=== PATIENT | male | born 1985 ===

== ENCOUNTER 2016-09-08 21:52 | Emergency (ER) | payer MEDICAID ==
[2016-09-08 22:11] VITALS: BP 138/67; PULSE 68; TEMP 98.9; O2SAT 97
--- NOTE | 2016-09-08 22:29 | C.PDOC ---
History Of Present Illness 30 y/o male presents to ED with complaint of dental pain that has persisted for the last month, worsening over the last few days. Patient also states he feels like there is pus draining from his lower back teeth. Patient states he was seen by dentist 1 month ago, who called in penicillin prescription for him, but was unable to fill due to insurance issues. Patient notes he has not followed up with dentist or had further evaluation since initial visit. Denies headache, fever, chills, sore throat, nausea, vomiting, or other associated symptoms. Time Seen by Provider: 09/08/16 22:07 Chief Complaint (Nursing): Dental Pain History Per: Patient History/Exam Limitations: no limitations Onset/Duration Of Symptoms: Days Current Symptoms Are (Timing): Worse Recent travel outside of the [place]: No Past Medical History Reviewed: Historical Data, Nursing Documentation, Vital Signs Vital Signs: Last Vital Signs Temp 98.9 F 09/08/16 22:11 Pulse 68 09/08/16 22:11 Resp 20 09/08/16 23:00 BP 138/67 09/08/16 22:11 Pulse Ox 97 09/08/16 22:55 - Medical History PMH: Asthma, Hepatitis (C) - [facility] Procedures OTHER SKIN & SUBQ I D (01/09/14) Family History: States: Unknown Family Hx - Social History Hx Tobacco Use: Yes Hx Alcohol Use: Yes Hx Substance Use: Yes - Immunization History Hx Tetanus Toxoid Vaccination: No Hx Influenza Vaccination: No Hx Pneumococcal Vaccination: No Review Of Systems Except As Marked, All Systems Reviewed And Found Negative. Constitutional: Negative for: Fever, Chills ENT: Positive for: Other (dental pain ). Negative for: Throat Pain Respiratory: Negative for: Cough Skin: Negative for: Rash Physical Exam - Physical Exam Appears: Non-toxic, No Acute Distress Skin: Normal Color, Warm, Dry Head: Atraumatic, Normacephalic Oral Mucosa: Moist Teeth: Caries (intensive caries, R > L), Edentulous (greater on right side), Tender To Palpation (posterior left lower gum) Gingiva: Erythema (greater on right lower gum ), No Bleeding, No Abscess, Other (no drainage noted) Throat: Normal, No Erythema, No Exudate Chest: Symmetrical Cardiovascular: Rhythm Regular Respiratory: Normal Breath Sounds, No Rales, No Rhonchi, No Wheezing Extremity: Normal ROM Neurological/Psych: Oriented x3, Normal Speech, Normal Cognition ED Course And Treatment O2 Sat by Pulse Oximetry: 97 (RA) Pulse Ox Interpretation: Normal Progress Note: Treated with Motrin and Penicillin VK PO. 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 - Scribe Statement The provider has reviewed the documentation as recorded by the Hanna Ruiz All medical record entries made by the Hanna were at my direction and personally dictated by me. I have reviewed the chart and agree that the record accurately reflects my personal performance of the history, physical exam, medical decision making, and the department course for this patient. I have also personally directed, reviewed, and agree with the discharge instructions and disposition.
[2016-09-08 23:01] VITALS: RESP 20
== END 2016-09-08 23:00 | disposition home or self-care (01) ==
LOC: C.ER 21:52
DX: K02.9 Dental caries, unspecified (principal); K05.10 Chronic gingivitis, plaque induced

== ENCOUNTER 2017-07-28 13:09 | Inpatient (IN) | payer MEDICAID ==
--- NOTE | 2017-07-28 16:30 | C.PDOC ---
History Of Present Illness 31 yr old male presents to the ER for opioid detox. Patient is a pre-screen. Denies SI, HI, chest pain, SOB, nausea, vomiting, weakness or numbness. Time Seen by Provider: 07/28/17 15:59 Chief Complaint (Nursing): Substance Abuse History Per: Patient History/Exam Limitations: no limitations Suicide/Self Injury Attempted (Context): None Severity: None Past Medical History Reviewed: Historical Data, Nursing Documentation, Vital Signs Vital Signs: Last Vital Signs Temp 97.7 F 07/28/17 15:49 Pulse 66 07/28/17 15:49 Resp 16 07/28/17 15:49 BP 137/83 07/28/17 15:49 Pulse Ox 99 07/28/17 17:15 - Medical History PMH: Asthma, Hepatitis (C) - [facility] Procedures OTHER SKIN & SUBQ I D (01/09/14) Family History: States: No Known Family Hx - Social History Hx Tobacco Use: Yes Hx Alcohol Use: No Hx Substance Use: Yes - Immunization History Hx Tetanus Toxoid Vaccination: No Hx Influenza Vaccination: Yes Hx Pneumococcal Vaccination: No Review Of Systems Except As Marked, All Systems Reviewed And Found Negative. Cardiovascular: Negative for: Chest Pain Respiratory: Negative for: Shortness of Breath Gastrointestinal: Negative for: Nausea, Vomiting Neurological: Negative for: Weakness, Numbness Physical Exam - Physical Exam Appears: Non-toxic, No Acute Distress Skin: Warm, Dry, No Rash Head: Atraumatic, Normacephalic Eye(s): bilateral: Normal Inspection, PERRL, EOMI Oral Mucosa: Moist Neck: Normal ROM Cardiovascular: Rhythm Regular, No Friction Rub, No Murmur Respiratory: Normal Breath Sounds, No Rales, No Rhonchi, No Stridor, No Wheezing Gastrointestinal/Abdominal: Normal Exam, Soft, No Tenderness, No Guarding, No Rebound Back: Normal Inspection, No CVA Tenderness Extremity: Normal ROM, No Swelling Neurological/Psych: Oriented x3, Normal Speech, Normal Motor Gait: Steady ED Course And Treatment - Laboratory Results Result Diagrams: 07/28/17 17:02 07/28/17 17:02 O2 Sat by Pulse Oximetry: 99 (RA) Pulse Ox Interpretation: Normal Medical Decision Making Medical Decision Making: PLAN: * Labs * Alcohol Serum * Drug Screen * Urinalysis NOTE: The patient is medically cleared for detox admission. Disposition - Disposition Disposition: HOSPITALIZED Disposition Time: 18:11 Condition: FAIR Forms: [facility] (Finnish) - POA Present On Arrival: None - Clinical Impression Clinical Impression: Opiate dependence - PA / UX LEAD / Resident Statement MD/DO has reviewed & agrees with the documentation as recorded. - Scribe Statement The provider has reviewed the documentation as recorded by the Scribe Leola Toro All medical record entries made by the Scribe were at my direction and personally dictated by me. I have reviewed the chart and agree that the record accurately reflects my personal performance of the history, physical exam, medical decision making, and the department course for this patient. I have also personally directed, reviewed, and agree with the discharge instructions and disposition.
[2017-07-28 17:06] LABS: HEMOGLOBIN 14.1 g/dL (12.0-18.0); MEAN CELL VOLUME 93.4 fL (80.0-94.0); MEAN CORPUSCULAR HEMOGLOBIN 32.2 pg (27.0-31.0); MEAN CORPUSCULAR HGB CONC 34.5 g/dL (33.0-37.0); MEAN PLATELET VOLUME 9.2 fL (7.2-11.7); RBC 4.38 Mil/uL (4.40-5.90); RED CELL DISTRIBUTION WIDTH 13.9 % (11.5-14.5); WHITE BLOOD COUNT 9.3 K/uL (4.8-10.8)
[2017-07-28 17:11] LABS: URINE BACTERIA RARE (<OCC); URINE BILIRUBIN NEGATIVE (NEGATIVE); URINE BLOOD NEGATIVE (NEGATIVE); URINE CLARITY Clear (Clear); URINE COLOR Yellow (YELLOW); URINE GLUCOSE (UA) NORMAL (Normal); URINE LEUKOCYTE ESTERASE NEG Leu/uL (Negative); URINE NITRATE NEGATIVE (NEGATIVE); URINE PROTEIN NEGATIVE (NEGATIVE)
[2017-07-28 17:24] LABS: ALB/GLOB RATIO 1.2 (1.0-2.1); ALBUMIN 4.2 g/dL (3.5-5.0); ALT/SGPT 47 U/L (21-72); AST/SGOT 38 U/L (17-59); BLOOD UREA NITROGEN 18 mg/dL (9-20); CALCIUM 9.3 mg/dl (8.6-10.4); GFR AFRICAN-AMERICAN > 60; GFR NON-AFRICAN AMERICAN > 60
[2017-07-28 17:42] LABS: BARBITURATES, UR NEGATIVE (NEGATIVE); BENZODIAZEPINES, UR NEGATIVE (NEGATIVE); PHENCYCLIDINE, UR NEGATIVE (NEGATIVE)
[2017-07-28 17:59] LABS: OPIATES, UR POSITIVE (NEGATIVE)
--- NOTE | 2017-07-28 19:15 | PCM.BM ---
Treatment Plan Problems - Problems identified on initial assessmt potiential for opiate withdrawal Date Initiated: 07/28/17 Time Initiated: 19:15 Assessment reference: NA Status: Active Treatment assets and liabiliti Patient Assests: ADL independent, physically healthy Patient Liabilities: substance abuse - Milieu Protocol Maintain good personal hygiene: daily Encourage regular showers, daily Remind patient to perform daily oral care, daily Assist patient to perform ADL's Maintain personal safety: every shift Educate patient to report safety concerns to staff, every shift Monitor environment for contraband/sharps Medication safety: Monitor for expected outcome, potential side effects: every shift, Assess barriers to learning: every shift, Assess readiness for medication education: every shift
[2017-07-28 19:20] VITALS: RESP 18
[2017-07-29] MEDS ORDERED: Buprenorphine Hydrochloride 2 mg SL ONE (04:10)
[2017-07-29 04:30] VITALS: BP 131/79; PULSE 62; TEMP 98.2; O2SAT 99
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
== END 2017-07-29 05:40 | disposition left against medical advice (07) | DRG 743 ==
LOC: C.ER 13:09 → C.7D 18:45
PROVIDERS: ADMIT Psychiatry & Neurology Psychiatry; ATTEND Psychiatry & Neurology Psychiatry
DX: F11.23 Opioid dependence with withdrawal (principal); F14.90 Cocaine use, unspecified, uncomplicated; F17.210 Nicotine dependence, cigarettes, uncomplicated; F31.9 Bipolar disorder, unspecified; J45.909 Unspecified asthma, uncomplicated

== ENCOUNTER 2018-01-20 07:56 | Emergency (ER) | payer MEDICAID ==
[2018-01-20 08:06] VITALS: PULSE 87; RESP 18; TEMP 99.7; O2SAT 99
[2018-01-20] MEDS ORDERED: Lidocaine 5% Patch TD STA (08:07)
--- NOTE | 2018-01-20 08:07 | C.PDOC ---
History Of Present Illness 32 year old male patient presents to the ER with c/o mid back and left ankle injury. Patient states his back pain is localized, constant, and is worse with movement. Patient reports he was playing basketball 2 days ago, twisted his ankle and fell onto his back. Patient notes his left ankle/foot is painful with swelling and cannot fully put his weight on left ankle/foot. Patient denies hx of chronic back pain or ankle pain and he did not take any pain medications for his injury. SP FALL 2 DAYS AGO CO MID BACK AND L ANKLE INJURY. PS PLAYING BASKETBALL, TWISTED ANKLE AND FELL ONTO BACK. BACK PAIN LOCALIZED CONSTANT WORSE W MOVEMENT. DENIES HO CHRONIC BACK OR ANKLE PAIN. L ANKLE/FOOT PAIN W SWELLING, LIMITED FULL WT BEAR. NO PAIN MEDS TRIED EXAM MILD DIST NONTOXIC HEENT ATRAUM BACK +SPASM MID BACK PARAVERT NO SPINAL TEND, LIMITED FULL EXTENSION DUE TO PAIN. NO DEFORM, SWELL EXT LLE +SWELLING PROX LAT L LAT FOOT W LOCAL TEND; NO MALL TEND. LIMITED ROM L ANKLE/FOOT SKIN INTACT NEURO NO FOCAL DEF REMAINDER NEG - HPI Time Seen by Provider: 01/20/18 08:03 Chief Complaint (Nursing): Lower Extremity Problem/Injury History Per: Patient History/Exam Limitations: no limitations Onset/Duration Of Symptoms: Days (x2) Location Of Injury: Left: Ankle, Posterior: Back (mid) Past Medical History Reviewed: Historical Data, Nursing Documentation, Vital Signs Vital Signs: Last Vital Signs Temp 99.7 F H 01/20/18 07:58 Pulse 87 01/20/18 07:58 Resp 18 01/20/18 07:58 BP Pulse Ox 99 01/20/18 08:31 - Medical History PMH: Asthma, Hepatitis (C) - [facility] Procedures OTHER SKIN & SUBQ I D (01/09/14) Family History: States: Unknown Family Hx - Social History Hx Tobacco Use: Yes Hx Alcohol Use: No Hx Substance Use: Yes - Immunization History Hx Tetanus Toxoid Vaccination: No Hx Influenza Vaccination: Yes Hx Pneumococcal Vaccination: No Review Of Systems Except As Marked, All Systems Reviewed And Found Negative. Constitutional: Negative for: Other (hx of chronic back pain and ankle pain) Musculoskeletal: Positive for: Back Pain (mid), Foot Pain (left ankle/foot) Physical Exam - Physical Exam Appears: Non-toxic, In Acute Distress (mild) Skin: Normal Color, Warm, Dry Head: Atraumatic, Normacephalic Eye(s): bilateral: Normal Inspection Ear(s): Bilateral: Normal Nose: Normal Oral Mucosa: Moist Throat: Normal Neck: Normal ROM, Supple Chest: Symmetrical, No Deformity Cardiovascular: Rhythm Regular Respiratory: Normal Breath Sounds, Other (NARD) Gastrointestinal/Abdominal: Soft, No Tenderness Back: No CVA Tenderness, Vertebral Tenderness, Decreased ROM (+limited full ext. due to pain), Muscle Spasm (+mid back ), No Paraspinal Tenderness, No Other (no deforminty/swelling) Extremity: No Normal ROM (limited ROM on left ankle/foot), Tenderness (+local tend on proximal lateral left lateral foot ), No Pedal Edema, No Calf Tenderness , Capillary Refill (<2 sec), No Deformity, Swelling (+ proximal lateral left lateral foot ), Other (skin intact) Pulses: Left Dorsalis Pedis: Normal, Right Dorsalis Pedis: Normal Neurological/Psych: Oriented x3, Normal Speech, Normal Motor, Normal Sensation, Normal Reflexes, Other (neuro deficits) Gait: Steady ED Course And Treatment O2 Sat by Pulse Oximetry: 99 (RA) Pulse Ox Interpretation: Normal - Other Rad ls spine X-Ray: Interpreted by Me (neg) L FOOT X-Ray: Interpreted by Me (NEG) L ANKLE X-Ray: Interpreted by Me (NEG) Progress Note: Impression: Left ankle/foot and mid back injury. Plans: -- XR Lumbar Spine. -- XR left ankle. -- XR left foot. -- Flexeril. -- Lidoderm 5% . -- Toradol 60mg. -- Tylenol 975mg. Reassess: Patient is resting comfortably. Tolerate PO. No bony tenderness, no numbness, no weakness, or abdominal pain. Patient is ambulatory in the emergency department with no signs of discomfort. Patient was advised to follow up with their physician in 1-2 days. Reevaluation Time: 08:42 Reassessment Condition: Improved Disposition Counseled Patient/Family Regarding: Studies Performed, Diagnosis, Need For Followup, Rx Given - Disposition Referrals: YOUR,PMD [Other] [facility] [Outside] [facility] [Outside] Disposition: HOME/ ROUTINE Disposition Time: 08:43 Condition: IMPROVED Prescriptions: Acetaminophen [Tylenol Extra Strength] 2 tab PO Q6 #30 tablet Cyclobenzaprine [Flexeril] 10 mg PO TID #15 tab Ibuprofen [Motrin] 600 mg PO Q6 #30 tab Lidocaine 5% [Lidoderm] 2 patch TOP ONCE PRN #20 patch MDD 3 PATCHES PRN Reason: Pain, Moderate (4-7) Instructions: Ankle Sprain (DC), Lumbar Muscle Strain (DC) Forms: [facility] (Montserratian), Work Excuse - Clinical Impression Clinical Impression: Ankle sprain, Foot sprain, Back sprain - Scribe Statement The provider has reviewed the documentation as recorded by the Hanna Felton Do Provider Attestation: All medical record entries made by the Scribe were at my direction and personally dictated by me. I have reviewed the chart and agree that the record accurately reflects my personal performance of the history, physical exam, medical decision making, and the department course for this patient. I have also personally directed, reviewed, and agree with the discharge instructions and disposition.
[2018-01-20] MEDS ORDERED: Lidocaine 5% Patch TD ONE (08:12)
--- NOTE | 2018-01-20 10:53 | RAD ---
Date of service: 01/20/2018 PROCEDURE: Left Ankle Radiographs. HISTORY: TRAUMA COMPARISON: None FINDINGS: BONES: Normal. No fracture. JOINTS: Normal. No osteoarthritis. Ankle mortise maintained. Talar dome intact SOFT TISSUES: Normal. OTHER FINDINGS: None. IMPRESSION: Normal left ankle radiographs.
--- NOTE | 2018-01-20 10:58 | RAD ---
Date of service: 01/20/2018 PROCEDURE: Left Foot Radiographs. HISTORY: TRAUMA COMPARISON: None. FINDINGS: BONES: No acute fracture appreciated JOINTS: Minimal 1st metatarsal-phalangeal joint arthrosis. A well corticated triangular bony density projects along the medial aspect of the 1st interphalangeal joint. An old osseous avulsion injury here -an old fracture fragment or prominent spur ir sys the sesamoid bone developmental variation no bulk some considerations. An os peroneum- accessory ossification center borders the cuboid bone. SOFT TISSUES: Normal. OTHER FINDINGS: Grossly the Lisfranc joint region appears within normal limits. Mild hammertoe orientations also suggested. IMPRESSION: No acute fracture. Other findings -as above.
--- NOTE | 2018-01-20 11:02 | RAD ---
Date of service: 01/20/2018 PROCEDURE: Radiographs of the Lumbar Spine. HISTORY: TRAUMA COMPARISON: No prior. FINDINGS: BONES: There is minimal 2 mm subluxation anterior of L5 relative to L4. No oblique views to better assess the pars regions are available. No lumbar vertebral body compression fracture. DISC SPACES: Narrowed L3-4 brenna L4-5 and L5-S1 OTHER FINDINGS: Stool retention. IMPRESSION: No lumbar vertebral body compression fracture. Minimal degrees of subluxation/malalignment at the L4-5 level for this age there is minimal facet hypertrophic changes at L4-5. The disc space narrowing although mild superior greater than typically seen in a patient of this age Stool retention.
== END 2018-01-20 08:59 | disposition home or self-care (01) ==
LOC: C.ER 07:56
DX: S93.402A Sprain of unspecified ligament of left ankle, initial encounter (principal); S93.602A Unspecified sprain of left foot, initial encounter; S23.3XXA Sprain of ligaments of thoracic spine, initial encounter; W18.39XA Other fall on same level, initial encounter; Y93.67 Activity, basketball; Y92.39 Other specified sports and athletic area as the place of occurrence of the external cause
CPT/HCPCS: 29405; 72100; 73610; 73630; 96372; 99284; J1885

== ENCOUNTER 2018-02-17 16:41 | Emergency (ER) | payer MEDICAID ==
--- NOTE | 2018-02-17 17:42 | C.PDOC ---
History Of Present Illness <Ayleen Diaz - Last Filed: 02/17/18 18:56> <Lesly Mancuso - Last Filed: 02/17/18 21:28> 32 y/o male brought to ED by EMS for acute public intoxication. Patient admits to "smoking" today. Denies chest pain, sob, or n/v. Denies SI/HI or any other complaints at this time. (Ayleen Diaz) History Per: Patient History/Exam Limitations: no limitations Onset/Duration Of Symptoms: Days Current Symptoms Are (Timing): Still Present Suicide/Self Injury Attempted (Context): None Modifying Factor(s): Marijuana <Ayleen Diaz - Last Filed: 02/17/18 18:56> <Lesly Mancuso - Last Filed: 02/17/18 21:28> Time Seen by Provider: 02/17/18 16:53 Chief Complaint (Nursing): Substance Abuse Past Medical History Reviewed: Historical Data, Nursing Documentation, Vital Signs - Medical History PMH: Asthma, Hepatitis (C) Surgical History: No Surg Hx Family History: States: No Known Family Hx - Social History Hx Tobacco Use: Yes Hx Alcohol Use: No Hx Substance Use: Yes - Immunization History Hx Tetanus Toxoid Vaccination: No Hx Influenza Vaccination: Yes Hx Pneumococcal Vaccination: No <Ayleen Diaz - Last Filed: 02/17/18 18:56> Vital Signs: Last Vital Signs Temp 98.9 F 02/17/18 17:00 Pulse 105 H 02/17/18 17:00 Resp 16 02/17/18 17:00 BP 125/67 02/17/18 17:00 Pulse Ox 95 02/17/18 18:56 - [facility] Procedures OTHER SKIN & SUBQ I D (01/09/14) Review Of Systems Constitutional: Negative for: Fever, Chills Cardiovascular: Negative for: Chest Pain Respiratory: Negative for: Cough Gastrointestinal: Negative for: Nausea, Vomiting Skin: Negative for: Rash Psych: Positive for: Other (substance abuse). Negative for: Suicidal ideation <Ayleen Diaz - Last Filed: 02/17/18 18:56> Physical Exam - Physical Exam Appears: Non-toxic, No Acute Distress Skin: Warm, Dry, No Rash Head: Atraumatic, Normacephalic Eye(s): bilateral: Normal Inspection, EOMI Nose: Normal Oral Mucosa: Moist Neck: Supple Chest: Symmetrical Cardiovascular: Rhythm Regular Respiratory: Normal Breath Sounds, No Rales, No Rhonchi, No Wheezing Gastrointestinal/Abdominal: Soft, No Tenderness, No Guarding, No Rebound Extremity: Normal ROM, Capillary Refill (<2 seconds) Neurological/Psych: Oriented x3, Normal Speech, Normal Cognition <Ayleen Diaz - Last Filed: 02/17/18 18:56> ED Course And Treatment O2 Sat by Pulse Oximetry: 95 (RA) Pulse Ox Interpretation: Normal Progress Note: Pt declines detox. Case endorsed to Dr Mancuso pending sobriety. <Ayleen Diaz - Last Filed: 02/17/18 18:56> Pulse Ox Interpretation: Normal Progress Note: pt ambulating without any difficulty., wants to go home Reevaluation Time: 21:27 Reassessment Condition: Improved <Lesly Mancuso - Last Filed: 02/17/18 21:28> Disposition - Disposition Disposition Time: 18:55 <Ayleen Diaz - Last Filed: 02/17/18 18:56> Counseled Patient/Family Regarding: Studies Performed, Diagnosis, Need For Followup <Lesly Mancuso - Last Filed: 02/17/18 21:28> - Disposition Referrals: [facility] [Outside] Disposition: HOME/ ROUTINE Condition: FAIR Instructions: Polysubstance Abuse (DC) Forms: [facility] (Congolese) - Clinical Impression Clinical Impression: Drug abuse - 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 - Scribe Statement The provider has reviewed the documentation as recorded by the Scribe <Ayleen Diaz - Last Filed: 02/17/18 18:56> <Lesly Mancuso - Last Filed: 02/17/18 21:28> - Scribe Statement Marilynn Meyer All medical record entries made by the Scribe were at my direction and personally dictated by me. I have reviewed the chart and agree that the record accurately reflects my personal performance of the history, physical exam, medical decision making, and the department course for this patient. I have also personally directed, reviewed, and agree with the discharge instructions and disposition. (Ayleen Diaz)
[2018-02-17 21:56] VITALS: BP 114/70; PULSE 84; RESP 20; TEMP 98.6; O2SAT 96
== END 2018-02-17 21:54 | disposition home or self-care (01) ==
LOC: C.ER 16:41
DX: F19.10 Other psychoactive substance abuse, uncomplicated (principal); Z72.0 Tobacco use

== ENCOUNTER 2018-03-19 09:41 | Emergency (ER) | payer MEDICAID ==
[2018-03-19 09:50] VITALS: BMI 22.5
[2018-03-19 09:51] VITALS: BP 120/78; PULSE 96; RESP 18; TEMP 99.1; O2SAT 97
--- NOTE | 2018-03-19 10:19 | C.PDOC ---
History Of Present Illness 32 year old male with PMHx of substance abuse presents to the ED for evaluation of right lateral chest wall/ribs pain for the past few weeks. Patient reports, pain is localized over Left lateral chest wall, worse with movement, reproducible. Patient notes prior doctors visit due to same pain " few month ago" where he was given a lidocaine patch with no significant improvement. Denies known recent trauma, injury, denies fever, chills, headache, dizziness, chest pain, shortness of breath, dyspnea, wheezing, palpitation, abd. pain, nausea, vomiting, and any other associated symptoms. Ambulate to Ed for evaluation, not in any apparent distress. Time Seen by Provider: 03/19/18 10:02 Chief Complaint (Nursing): Back Pain History Per: Patient History/Exam Limitations: no limitations Onset/Duration Of Symptoms: Days Current Symptoms Are (Timing): Still Present Past Medical History Reviewed: Historical Data, Nursing Documentation, Vital Signs Vital Signs: Last Vital Signs Temp 99.1 F 03/19/18 09:50 Pulse 96 H 03/19/18 09:50 Resp 18 03/19/18 09:50 BP 120/78 03/19/18 09:50 Pulse Ox 97 03/19/18 09:50 - Medical History PMH: Asthma, Hepatitis (C) Denies: Diabetes (Patient denied), HIV (Patient denied), HTN (Patient denied), Seizures (Patient denied), Sexually Transmitted Disease (Patient denied) - [facility] Procedures OTHER SKIN & SUBQ I D (01/09/14) Family History: States: Unknown Family Hx - Social History Hx Tobacco Use: Yes Hx Alcohol Use: No Hx Substance Use: Yes - Immunization History Hx Tetanus Toxoid Vaccination: No Hx Influenza Vaccination: Yes Hx Pneumococcal Vaccination: No Review Of Systems Except As Marked, All Systems Reviewed And Found Negative. Constitutional: Negative for: Fever, Chills Cardiovascular: Negative for: Chest Pain, Other (shortness of breath. ) Respiratory: Negative for: Wheezing Gastrointestinal: Negative for: Nausea, Vomiting Musculoskeletal: Positive for: Other (right lateral ribcage pain. ) Physical Exam - Physical Exam Appears: Well, Non-toxic, No Acute Distress Skin: Warm, Dry, No Rash, No Ecchymosis Head: Normacephalic Eye(s): bilateral: PERRL Nose: No Flaring, No Discharge Oral Mucosa: Moist, No Drooling Tongue: Normal Appearing Lips: Normal Appearing Throat: No Erythema, No Drooling Neck: Normal ROM, Trachea Midline, No Midline Cervical Tenderness, No Paracervical Tenderness, No Step Off Deformity, Supple Chest: Symmetrical, No Deformity, Tenderness (over the left lateral chest wall overlying the 6-8 intercostal space.), No Ecchymosis, No Subcutaneous Emphysema Cardiovascular: Rhythm Regular, No Murmur, No JVD, Other ((-) carotid bruits B/L) Respiratory: No Decreased Breath Sounds, No Accessory Muscle Use, No Rales, No Rhonchi, No Stridor, No Wheezing Gastrointestinal/Abdominal: Soft, No Tenderness Back: No CVA Tenderness, No Vertebral Tenderness Extremity: Normal ROM (x4), No Tenderness, No Deformity, No Swelling Neurological/Psych: Oriented x3, Normal Speech, Normal Motor, Normal Sensation, Normal Reflexes Gait: Steady ED Course And Treatment ECG: Interpreted By Me, Viewed By Me ECG Rhythm: Sinus Rhythm ECG Interpretation: No Changes From Prior Interpretation Of ECG: SR@60/min, NAD, LVH, no acute ST-T changes. O2 Sat by Pulse Oximetry: 97 (RA) Pulse Ox Interpretation: Normal - Other Rad Ribs serial w/chest X-Ray: Interpreted by Me, Viewed By Me Interpretation: (-) acute fx, no pnx Progress Note: Left rib and chest x-ray. Urinalysis. Given Ibuprofen and Ultram. On re-eval, pt is afebrile, hemodynamicaly stable. non-toxic. PulseOx 97% RA. neck: Supple, (-) JVD, (-) carotid bruits B/L. ENT: no acute findings. Lungs: CTA B/L, BS equal B/L. CVS: (+)S1S2, reg, (-) murmur. (+) reproducible tenderness over left lateral chest wall, no palpable deformity, no skin changes. Abd: benign, (-) guarding, (-) rebound. back: (-) CVA tenderness. neuorlogicaly intact. Ribs left side w/CXR- no acute fx, no pneumothorax. EKG- no acute changes. Pt has clinical findings c/w left sided chest wall pain, intermittent, chr for past few weeks. pt advised. ref. to f/u with PMD, card in 2-3 days for re-eval. return to ED if any worsening or new changes. Disposition Counseled Patient/Family Regarding: Studies Performed, Diagnosis, Need For Followup, Rx Given - Disposition Referrals: Sushil Yan MD [Medical Doctor] - Disposition: HOME/ ROUTINE Disposition Time: 10:40 Condition: STABLE Additional Instructions: Take medication for pain as prescribed Follow up with PMD in 2-3 days for re-evaluation. return to ED if any new changes. Prescriptions: Methocarbamol [Robaxin] 500 mg PO TID #14 tab traMADol [Ultram] 50 mg PO TID #7 tab Instructions: Bruised Rib Forms: [facility] ([place]) - Clinical Impression Clinical Impression: Chest wall pain - PA / NUTRITION REPRESENTATIVE / Resident Statement MD/DO has reviewed & agrees with the documentation as recorded. - Scribe Statement The provider has reviewed the documentation as recorded by the Scribe (Yvonne Andrews) All medical record entries made by the Scribe were at my direction and personally dictated by me. I have reviewed the chart and agree that the record accurately reflects my personal performance of the history, physical exam, medical decision making, and the department course for this patient. I have also personally directed, reviewed, and agree with the discharge instructions and disposition.
[2018-03-19 10:44] LABS: URINE BILIRUBIN NEGATIVE (NEGATIVE); URINE BLOOD NEGATIVE (NEGATIVE); URINE CLARITY Clear (Clear); URINE COLOR Yellow (YELLOW); URINE GLUCOSE (UA) NORMAL (Normal); URINE LEUKOCYTE ESTERASE NEG Leu/uL (Negative); URINE PROTEIN NEGATIVE (NEGATIVE)
--- NOTE | 2018-03-19 13:37 | RAD ---
Date of service: 03/19/2018 PROCEDURE: Radiographs of the Chest and Left Ribs. HISTORY: Left sided chest wall pain COMPARISON: None available. TECHNIQUE: Frontal radiograph of the chest and multiple oblique radiographs of the left ribs were obtained. FINDINGS: LEFT RIBS: No fracture or focal lesion visualized. LUNGS: Clear. PLEURA: No pneumothorax or pleural fluid. CARDIOVASCULAR: Normal sized heart. No pulmonary vascular congestion. OTHER FINDINGS: Probable trace discoid atelectasis and/or scarring benign appearing left lung base. IMPRESSION: No rib fracture or lytic lesion appreciated. No pneumothorax or pleural effusion.
--- NOTE | 2018-03-23 11:14 | CARD ---
APPROVED REPORT Date of service: 03/19/2018 EKG Measurement Heart [id number] <Conclusion> Normal sinus rhythm Possible Left atrial enlargement Left ventricular hypertrophy Abnormal ECG
== END 2018-03-19 13:05 | disposition home or self-care (01) ==
LOC: C.ER 09:41
DX: R07.89 Other chest pain (principal)

== ENCOUNTER 2018-10-20 09:19 | Emergency (ER) | payer MEDICAID ==
[2018-10-20 09:23] VITALS: BMI 22.5
[2018-10-20 09:34] VITALS: BP 141/80; PULSE 105; RESP 18; TEMP 97.7; O2SAT 96
== END 2018-10-20 09:30 | disposition left against medical advice (07) ==
LOC: C.ER 09:19
DX: Z02.89 Encounter for other administrative examinations (principal); F19.10 Other psychoactive substance abuse, uncomplicated